=== PATIENT | male | born 1960 | race Caucasian/White ===

== ENCOUNTER 2021-09-18 10:00 | Outpatient (CLI) | payer OTHER ==
[~2021-09-18] VITALS: Ht 180.3 cm; Wt 88.5 kg
== END 2021-09-18 11:00 | disposition home or self-care (01) ==
LOC: SLB 10:00 → EDSTATUS 09-20 12:00
PROVIDERS: ATTEND Internal Medicine
DX: Z20.822 Contact with and (suspected) exposure to COVID-19 (principal)
CPT/HCPCS: 36415; U0003

== ENCOUNTER 2021-10-13 09:05 | Day surgery (SDC) | payer OTHER ==
[~2021-10-13] VITALS: Ht 180.3 cm; Wt 88.5 kg
[2021-10-13] MEDS ORDERED: BENZOCAINE 20% 0.5mL UD SPRAY MM ONE (10:05)
[2021-10-13] MEDS ORDERED: LIDOCAINE MPF 2% 20 MG/1 ML, 5 ML VIAL INH ONE ×2 (10:05→11:00)
[2021-10-13] MEDS ORDERED: LIDOCAINE 2% JELLY UROJECT 10 ML MM ONE (10:05)
[2021-10-13] MEDS ORDERED: MIDAZOLAM HCL 5 MG/5 ML VIAL ONE (10:06)
[2021-10-13] MEDS ORDERED: fentaNYL CITRATE/PF 100 MCG/2 ML AMP ONE (10:36)
[2021-10-13 13:27] VITALS: BP_SYST 134
== END 2021-10-13 13:40 | disposition home or self-care (01) ==
LOC: SDS 09:05
PROVIDERS: ATTEND Internal Medicine Pulmonary Disease
DX: R91.8 Other nonspecific abnormal finding of lung field (principal); F17.210 Nicotine dependence, cigarettes, uncomplicated; Z79.899 Other long term (current) drug therapy; Z20.822 Contact with and (suspected) exposure to COVID-19
CPT/HCPCS: 31624; 36415 ×3; 82962; 87426; 88108; 88305; 94640; 99152; G0378; J2250; U0003 ×2; 31622; 31625; J3010